=== PATIENT | male | born 1955 ===

== ENCOUNTER 2017-06-10 11:31 | Outpatient (CLI) | payer OTHER | END 2017-06-10 11:42 | disposition home or self-care (01) | LOC: LAB 11:31 | DX: R97.20 Elevated prostate specific antigen [PSA] (principal) ==

== ENCOUNTER 2017-06-21 07:36 | Outpatient (CLI) | payer OTHER | END 2017-06-21 07:37 | disposition home or self-care (01) | LOC: SONOGRAMA 07:36 → MAMO-SONO 08:15 | DX: R97.20 Elevated prostate specific antigen [PSA] (principal) ==